=== PATIENT | female | born 1955 | race Caucasian/White ===

== ENCOUNTER → 2016-05-25 | Outpatient (CLI) | payer BC ==
[~2016-05-25] MED LIST: BUPRTAB51 PO; CALC1CHW57 PO; DIPH25CA65 PO; FRS/40 PO; GLC/500 PO; IBAN150T PO; LISI-729 PO; LORA-741 PO; METO25TA3 PO; MULT-506 PO
[2016-05-25 11:23] LABS: ALT/SGPT 83 U/L (12-78); AST/SGOT 70 U/L (15-37); BLOOD UREA NITROGEN 20 mg/dl (7-18); BUN/CREATININE RATIO 19.9 (10-20); CALCIUM 8.9 mg/dl (8.5-10.1); CARBON DIOXIDE 29 mmol/L (21-32); CHLORIDE 106 mmol/L (98-107); GLUCOSE 97 mg/dl (70-99); SODIUM 142 mmol/L (136-145)
== END | disposition home or self-care (01) ==
LOC: C.LAB1850 10:05
PROVIDERS: ATTEND Internal Medicine Cardiovascular Disease
DX: I42.8 Other cardiomyopathies (principal); I50.22 Chronic systolic (congestive) heart failure; I34.0 Nonrheumatic mitral (valve) insufficiency

== ENCOUNTER → 2016-06-03 | Outpatient (CLI) | payer BC ==
--- NOTE | 2016-06-03 14:55 | DIAGNOSTIC IMAGING REPORT ---
BILATERAL KNEE RADIOGRAPHS CLINICAL HISTORY: Bilateral knee pain. Arthritis. COMPARISON: Knee radiographs July 24, 2013. FINDINGS: Right knee: There is moderate lateral patellar tilt. There is marked joint space narrowing within the lateral patellofemoral compartment. There is no acute fracture or joint effusion of the right knee. There is osteophytosis within the medial and lateral compartments of the right knee. Left knee: There is lateral patellar tilt with marked joint space narrowing within the lateral aspect of the patellofemoral compartment. There is mild osteophytosis within the medial and lateral compartments of the left knee with ossified ptosis. There is no acute fracture or joint effusion of the left knee. IMPRESSION: Right knee: 1. Severe arthritis within the patellofemoral compartment of the right knee with mild arthritis within the medial and lateral compartments. 2. No acute fracture or joint effusion of the right knee. Left knee: 1. Severe arthritis within the patellofemoral compartment of the left knee with mild arthritis within the medial and lateral compartments. 2. No acute fracture or joint effusion of the left knee. Electronically signed by: Roland Dumont M.D. 06/03/2016 2:53 PM Dictated Date/Time: 06/03/2016 2:51 PM
== END | disposition home or self-care (01) ==
LOC: C.RDSM 11:36
PROVIDERS: ATTEND Physical Medicine & Rehabilitation Sports Medicine
DX: M17.9 Osteoarthritis of knee, unspecified (principal); R52 Pain, unspecified

== ENCOUNTER → 2016-09-27 | Outpatient (CLI) | payer BC ==
--- NOTE | 2016-09-27 13:41 | DIAGNOSTIC IMAGING REPORT ---
RIGHT KNEE 3 VIEWS CLINICAL HISTORY: B/L KNEE PAIN Right pain COMPARISON: 06/03/2016 DISCUSSION: Moderate degenerative changes in medial and lateral joint compartments. Severe degenerative change patellofemoral joint. Reactive sclerosis and osteophytic formation of the marginal regions of the joint spaces. No significant joint effusion. There is no evidence for soft tissue swelling. IMPRESSION: Moderate to significant degenerative change throughout all major joint compartments. No change from the prior study. Electronically signed by: Amanuel Ni M.D. 09/27/2016 1:40 PM Dictated Date/Time: 09/27/2016 1:38 PM
== END | disposition home or self-care (01) ==
LOC: C.RDSM 13:15
PROVIDERS: ATTEND Physician Assistant
DX: M25.561 Pain in right knee (principal); M25.562 Pain in left knee

== ENCOUNTER → 2017-01-31 | Outpatient (CLI) | payer BC ==
[2017-01-31 17:35] LABS: HEMATOCRIT 44.4 % (37-47); MEAN CELL VOLUME 91.2 fL (80-100); MEAN CORPUSCULAR HEMOGLOBIN 30.8 pg (25-34); MEAN CORPUSCULAR HGB CONC 33.8 g/dl (32-36); MEAN PLATELET VOLUME 10.7 fL (7.4-10.4); PLATELET COUNT 248 K/uL (130-400); RED BLOOD COUNT 4.87 M/uL (4.2-5.4)
[2017-01-31 17:43] LABS: ALT/SGPT 73 U/L (12-78); AST/SGOT 45 U/L (15-37); BLOOD UREA NITROGEN 23 mg/dl (7-18); BUN/CREATININE RATIO 23.5 (10-20); CALCIUM 9.1 mg/dl (8.5-10.1); CARBON DIOXIDE 25 mmol/L (21-32); CHLORIDE 107 mmol/L (98-107); CREATININE 0.98 mg/dl (0.60-1.20); GLUCOSE 116 mg/dl (70-99); POTASSIUM 4.6 mmol/L (3.5-5.1); SODIUM 140 mmol/L (136-145)
[2017-01-31 17:52] LABS: CHOLESTEROL/HDL RATIO 4.5
== END | disposition home or self-care (01) ==
LOC: C.LABBC 14:45
PROVIDERS: ATTEND Internal Medicine Cardiovascular Disease
DX: E78.00 Pure hypercholesterolemia, unspecified (principal); I42.8 Other cardiomyopathies; I50.22 Chronic systolic (congestive) heart failure

== ENCOUNTER → 2017-08-09 | Outpatient (CLI) | payer BC ==
[~2017-08-09] MED LIST changes: -METO25TA3 PO; +METO25TA4 PO
[2017-08-09 09:37] LABS: HEMATOCRIT 41.6 % (37-47); HEMOGLOBIN 13.9 g/dL (12.0-16.0); MEAN CELL VOLUME 91.4 fL (80-100); MEAN CORPUSCULAR HEMOGLOBIN 30.5 pg (25-34); MEAN CORPUSCULAR HGB CONC 33.4 g/dl (32-36); MEAN PLATELET VOLUME 10.9 fL (7.4-10.4); PLATELET COUNT 220 K/uL (130-400); RED CELL DISTRIBUTION WIDTH CV 13.4 % (11.5-14.5); RED CELL DISTRIBUTION WIDTH SD 44.5 fL (36.4-46.3); WHITE BLOOD COUNT 6.66 K/uL (4.8-10.8)
[2017-08-09 09:43] LABS: ALT/SGPT 55 U/L (12-78); AST/SGOT 35 U/L (15-37); BLOOD UREA NITROGEN 14 mg/dl (7-18); CALCIUM 8.8 mg/dl (8.5-10.1); CARBON DIOXIDE 27 mmol/L (21-32); CREATININE 1.01 mg/dl (0.60-1.20); GLUCOSE 134 mg/dl (70-99); POTASSIUM 4.4 mmol/L (3.5-5.1); SODIUM 139 mmol/L (136-145)
== END | disposition home or self-care (01) ==
LOC: C.LAB1850 07:14
PROVIDERS: ATTEND Internal Medicine Cardiovascular Disease
DX: I42.8 Other cardiomyopathies (principal); I50.22 Chronic systolic (congestive) heart failure; E78.00 Pure hypercholesterolemia, unspecified